=== PATIENT | female | born 1980 | race African-American/Black ===

== ENCOUNTER 2017-08-26 18:04 | Emergency (ER) | payer MEDICAID, OTHER ==
[~2017-08-26] VITALS: Ht 157.5 cm; Wt 72.1 kg
[2017-08-26] MEDS ORDERED: TETRACAINE HCL 0.5% OPTH(EYE) SOLN 4ML EACHEYE ONE (18:45)
[2017-08-26 18:46] VITALS: BP 126/80
[2017-08-26] MEDS ORDERED: GENTAMICIN OPTH sol 0.3% 5ml EACHEYE ONE (19:45)
[2017-08-26] MEDS ORDERED: GENTAMICIN OPTH sol 0.3% 5ml ONE (19:47)
== END 2017-08-26 20:01 | disposition home or self-care (01) ==
LOC: ER 18:07
DX: H16.002 Unspecified corneal ulcer, left eye (principal)
CPT/HCPCS: 99283; J7030